=== PATIENT | male | born 1970 | race Caucasian/White ===

== ENCOUNTER 2025-03-18 11:14 | Emergency (ER) | payer SELFPAY ==
[2025-03-18 11:16] VITALS: BP 146/83
[2025-03-18 11:33] VITALS: BMI 25.9
--- NOTE | 2025-03-18 12:15 | EDRN ---
Josep Montero PA in to see ptJulia
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
[2025-03-18 14:22] VITALS: BP 129/86
== END 2025-03-18 14:01 | disposition home or self-care (01) ==
LOC: EMR 11:14
PROVIDERS: EMERGENCY PHYSICIAN Emergency Medicine; FAMILY PHYSICIAN Family Medicine
DX: S09.90XA Unspecified injury of head, initial encounter (principal); M25.512 Pain in left shoulder; S00.83XA Contusion of other part of head, initial encounter; R51.9 Headache, unspecified; M25.612 Stiffness of left shoulder, not elsewhere classified; V49.40XA Driver injured in collision with unspecified motor vehicles in traffic accident, initial encounter; Y92.410 Unspecified street and highway as the place of occurrence of the external cause; R03.0 Elevated blood-pressure reading, without diagnosis of hypertension
CPT/HCPCS: 99283; 73030